=== PATIENT | male | born 1975 | race Caucasian/White ===

== ENCOUNTER 2021-05-22 09:41 | Inpatient (IN) ==
[2021-05-22] MEDS ORDERED: NS 0.9% 1000 ml BAG 1,000 ML IV ONE ×2 (09:49→09:50)
[2021-05-22] MEDS ORDERED: Diltiazem IV push/loading dose 5 MG/ML 5 ML vial (25 mg) IV SLOW PU ONE (09:57)
[2021-05-22] MEDS ORDERED: Diltiazem (ADVAN VIAL) 100 MG/100 ML ADDV.BAG IV ONE (09:59)
[2021-05-22 10:16] LABS: ABS Basophils 0.1 10^3/ul (0-0.2); ABS Eosinophils 0.2 10^3/ul (0-0.6); ABS Lymphocytes 1.8 10^3/ul (1.0-4.8); ABS Monocytes 0.8 10^3/ul (0-0.8); ABS Neutrophils 8.3 10^3/ul (1.5-7.7); Eosinophil % 1.9 %; Hematocrit 39 % (42-52); Hemoglobin 13.6 g/dL (14.0-18.0); Lymphocyte % 16.4 %; Mean Corpuscular HGB Conc 35 g/dL (31-36); Mean Corpuscular Hemoglobin 31 pg (27-31); Mean Corpuscular Volume 91 fL (80-94); Mean Platelet Volume 7.8 fL (7.4-10.4); Platelet Count 264 10^3/uL (150-450); Red Blood Count 4.34 10^6 /uL (4.18-5.48); Red Cell Distribution Width 16 % (10-15); White Blood Count 11.2 10^3/uL (3.5-10.8)
[2021-05-22 10:36] LABS: ALT 31 U/L (7-52); Albumin 3.9 g/dL (3.2-5.2); Albumin/Globulin Ratio 1.1 (1-3); Alkaline Phosphatase 101 U/L (35-149); Blood Urea Nitrogen 14 mg/dL (6-24); CO2 Carbon Dioxide 26 mmol/L (22-32); Calcium 8.9 mg/dL (8.6-10.3); Chloride 99 mmol/L (101-111); EGFR African American 120.7 (>60); EGFR Non-African American 99.7 (>60); Globulin 3.4 g/dL (2-4); Glucose 217 mg/dL (70-100); Magnesium 1.8 mg/dL (1.9-2.7); Sodium 133 mmol/L (135-145); Total Protein 7.3 g/dL (6.4-8.9)
[2021-05-22 10:40] LABS: Troponin I 0.08 ng/mL (<0.03)
[2021-05-22 11:18] LABS: AST 22 U/L (13-39); Anion Gap 8 mmol/L (2-11); Potassium 3.3 mmol/L (3.5-5.0)
[2021-05-22 11:22] LABS: TSH Ultra Thyroid Stim Horm 4.04 mcIU/mL (0.34-5.60)
[2021-05-22] MEDS ORDERED: Magnesium Sulfate IV 3 GM in NS 0.9% 100 ml BAG 100 ML IVPB ONE (12:03)
[2021-05-22] MEDS ORDERED: Potassium Chlor 20 meq TAB.ER PO ONE (12:03)
[2021-05-22] MEDS ORDERED: NS 0.9% 100 ml BAG 100 ML ONE (12:19)
[2021-05-22 14:22] LABS: Troponin I 0.16 ng/mL (<0.03)
[2021-05-22 18:53] LABS: Anion Gap 5 mmol/L (2-11); Blood Urea Nitrogen 13 mg/dL (6-24); CO2 Carbon Dioxide 28 mmol/L (22-32); Calcium 8.7 mg/dL (8.6-10.3); Chloride 103 mmol/L (101-111); EGFR African American 112.8 (>60); EGFR Non-African American 93.2 (>60); Glucose 158 mg/dL (70-100); Potassium 3.5 mmol/L (3.5-5.0); Sodium 136 mmol/L (135-145)
[2021-05-22 18:56] LABS: Troponin I 0.19 ng/mL (<0.03)
[2021-05-22] MEDS: Digoxin IV 0.5 MG/2 ML AMP (0.25 MG/ML) IV SLOW PU SCH ×2 (19:19→22:02)
[2021-05-22] MEDS: Lactated Ringers 1000 ml BAG 1,000 ML IV SCH (19:56)
[2021-05-23 01:09] LABS: Troponin I 0.17 ng/mL (<0.03)
[2021-05-23] MEDS: Digoxin IV 0.5 MG/2 ML AMP (0.25 MG/ML) IV SLOW PU SCH (02:21)
[2021-05-23] MEDS: Lactated Ringers 1000 ml BAG 1,000 ML IV SCH (02:40)
[2021-05-23 04:38] LABS: Digoxin 1.2 ng/ml (0.8-2.0)
[2021-05-23 07:44] LABS: Ferritin 201.3 ng/mL (24-336)
[2021-05-23 09:56] LABS: ABS Basophils 0.1 10^3/ul (0-0.2); ABS Eosinophils 0.2 10^3/ul (0-0.6); ABS Lymphocytes 1.5 10^3/ul (1.0-4.8); ABS Monocytes 0.4 10^3/ul (0-0.8); ABS Neutrophils 5.7 10^3/ul (1.5-7.7); Eosinophil % 2.5 %; Hematocrit 36 % (42-52); Hemoglobin 11.8 g/dL (14.0-18.0); Lymphocyte % 19.2 %; Mean Corpuscular HGB Conc 33 g/dL (31-36); Mean Corpuscular Hemoglobin 31 pg (27-31); Mean Corpuscular Volume 92 fL (80-94); Mean Platelet Volume 7.6 fL (7.4-10.4); Nucleated Red Blood Cells % 0.1; Platelet Count 208 10^3/uL (150-450); Red Blood Count 3.86 10^6 /uL (4.18-5.48); Red Cell Distribution Width 16 % (10-15)
[2021-05-23 10:15] LABS: Blood Urea Nitrogen 10 mg/dL (6-24); CO2 Carbon Dioxide 27 mmol/L (22-32); Calcium 8.2 mg/dL (8.6-10.3); Chloride 106 mmol/L (101-111); EGFR African American 154.5 (>60); EGFR Non-African American 127.7 (>60); Glucose 221 mg/dL (70-100); Magnesium 2.1 mg/dL (1.9-2.7); Phosphorus 1.6 mg/dL (2.5-5.0); Sodium 134 mmol/L (135-145)
[2021-05-23 10:26] LABS: Anion Gap 1 mmol/L (2-11)
[2021-05-23 11:18] LABS: Potassium Redraw 4.2 mmol/L (3.5-5.0)
[2021-05-23] MEDS ORDERED: Sodium Phosphate IV 30 MMOLE in NS 0.9% 250 ml 250 ML IVPB ONE (11:37)
[2021-05-23 11:58] LABS: % Iron Saturation 17 % (15-55); Iron 56 ug/dL (50-212); Total Iron Binding Capacity 335 mcg/dL (250-450); Transferrin 239 mg/dL (203-362); Unsaturated Iron Binding < 320 ug/dL
[2021-05-23] MEDS ORDERED: Dextrose 50% Syringe 50 ml 25 GM/50 ML SYRINGE IV PUSH PRN (12:19)
[2021-05-23 17:38] LABS: Calcium 8.9 mg/dL (8.6-10.3); EGFR African American 151.9 (>60); EGFR Non-African American 125.5 (>60); Magnesium 1.9 mg/dL (1.9-2.7); Potassium 3.8 mmol/L (3.5-5.0)
[2021-05-24 05:21] LABS: ABS Basophils 0.1 10^3/ul (0-0.2); ABS Eosinophils 0.3 10^3/ul (0-0.6); ABS Lymphocytes 1.8 10^3/ul (1.0-4.8); ABS Monocytes 0.6 10^3/ul (0-0.8); ABS Neutrophils 4.9 10^3/ul (1.5-7.7); Eosinophil % 3.6 %; Hematocrit 38 % (42-52); Hemoglobin 12.6 g/dL (14.0-18.0); Lymphocyte % 23.5 %; Mean Corpuscular HGB Conc 33 g/dL (31-36); Mean Corpuscular Hemoglobin 31 pg (27-31); Mean Corpuscular Volume 93 fL (80-94); Mean Platelet Volume 7.1 fL (7.4-10.4); Nucleated Red Blood Cells % 0.1; Platelet Count 210 10^3/uL (150-450); Red Blood Count 4.11 10^6 /uL (4.18-5.48); Red Cell Distribution Width 16 % (10-15); White Blood Count 7.6 10^3/uL (3.5-10.8)
[2021-05-24 05:39] LABS: Anion Gap 3 mmol/L (2-11); Blood Urea Nitrogen 13 mg/dL (6-24); CO2 Carbon Dioxide 29 mmol/L (22-32); Calcium 8.6 mg/dL (8.6-10.3); Chloride 104 mmol/L (101-111); EGFR African American 146.9 (>60); EGFR Non-African American 121.4 (>60); Glucose 150 mg/dL (70-100); Phosphorus 2.6 mg/dL (2.5-5.0); Potassium 4.1 mmol/L (3.5-5.0); Sodium 136 mmol/L (135-145)
[2021-05-24 15:09] LABS: Troponin I 0.16 ng/mL (<0.03)
[2021-05-25 04:39] LABS: ABS Basophils 0.1 10^3/ul (0-0.2); ABS Eosinophils 0.3 10^3/ul (0-0.6); ABS Lymphocytes 1.8 10^3/ul (1.0-4.8); ABS Monocytes 0.6 10^3/ul (0-0.8); ABS Neutrophils 5.3 10^3/ul (1.5-7.7); Eosinophil % 3.4 %; Hematocrit 38 % (42-52); Hemoglobin 12.9 g/dL (14.0-18.0); Lymphocyte % 22.6 %; Mean Corpuscular HGB Conc 34 g/dL (31-36); Mean Corpuscular Hemoglobin 31 pg (27-31); Mean Corpuscular Volume 91 fL (80-94); Mean Platelet Volume 7.5 fL (7.4-10.4); Platelet Count 211 10^3/uL (150-450); Red Blood Count 4.17 10^6 /uL (4.18-5.48); Red Cell Distribution Width 16 % (10-15)
[2021-05-25 04:57] LABS: Calcium 8.9 mg/dL (8.6-10.3); EGFR African American 127.8 (>60); EGFR Non-African American 105.6 (>60); Magnesium 1.9 mg/dL (1.9-2.7); Phosphorus 2.4 mg/dL (2.5-5.0); Potassium 3.8 mmol/L (3.5-5.0)
[2021-05-25 07:42] VITALS: BP 143/76
[2021-05-25] MEDS ORDERED: Perflutren Lipid Microsphere 3 ML VIAL ONE (09:05)
== END 2021-05-25 09:44 | disposition left against medical advice (07) | DRG 201 ==
LOC: ED 09:41 → ICU 12:01 → MEDTELE 05-25 05:48
PROVIDERS: ADMIT Internal Medicine; ATTEND Internal Medicine